=== PATIENT | female | born 1985 | race Caucasian/White ===

== ENCOUNTER 2016-12-22 15:19 | Emergency (ER) | payer BC ==
--- NOTE | ~2016-12-22 | CT114 ---
[facility] A Service of [facility] & [facility] RADIOLOGY TEXT RESULTS PATIENT: CHINEDU ROSSI LOCATION: SED : 81 UNIT #: [id number] AGE: [address]: Rachel Ramirez MD SEX: F ORDER DR: [id number] [address] [address] [id number] E MR#: [id number] #: [id number] NAME: CHINEDU ROSIS : 1985 SEX: F STUDY DATE/TIME: 12/22/2016 17:06 UNIT: SED ROOM: STUDY DESCRIPTION: CT Soft Tissue Neck W Cont Attending Physician: Rachel Ramirez M.D. Referring Physician: Rachel Ramirez M.D. Ordering Physician: Rachel Ramirez M.D. Primary Care Physician: Toy Daniel M.D. MEDICAL IMAGING REPORT This report is preliminary unless electronic signature is present. EXAM Neck CT with contrast. HISTORY Neck swelling toward the right with difficulty talking and swallowing for the past 4 days. Recent upper respiratory infection. TECHNIQUE Axial images were obtained from the skull base to the upper mediastinum with contrast. 75 mL of Isovue was used. Gel-Cap markers were placed at the site of symptoms. This CT exam was performed with one or more of the following radiation dose reduction techniques: automatic exposure control, adjustment of mA and/or kV according to patient size, and iterative reconstruction. FINDINGS The skull base, parapharyngeal spaces and pharyngeal mucosal surfaces have a normal appearance. The parotid and submandibular glands are not enlarged. Normal sized cervical lymph nodes are seen bilaterally. They are slightly larger and more numerous on the right than on the left. They are likely reactive in nature. No pathologically enlarged nodes are seen. Vascular structures of the neck are normal. Soft tissue planes in the larynx are preserved. The right thyroid has been resected. There are multiple left-sided thyroid nodules. The upper mediastinum is unremarkable. IMPRESSION Status post right-sided thyroid resection with remaining nodules in the left thyroid lobe. There is no evidence of acute inflammatory change in the right side of the neck. Normal sized cervical nodes are seen bilaterally. They are slightly larger and more numerous on the right than on the left but still within normal limits and likely reactive in nature. [facility]. [facility] A Service of [facility] RADIOLOGY TEXT RESULTS PATIENT: CHINEDU ROSSI LOCATION: [facility] [place] : [birth year] UNIT #: [id number] AGE: [address]: Rachel Ramirez MD SEX: F ORDER DR: Dictated by... Justin López M.D. THIS IS AN ELECTRONICALLY VERIFIED REPORT Justin López M.D. at 12/23/2016 10:03 AM ANDERSON/ruth TD: 12/23/2016 00:31 JOB #: [id number] MEDICAL IMAGING REPORT Page 1 of 1
[~2016-12-22 15:19] MED LIST: ALLEGRA-D1 TAB.SR1 PO; LEXAPRO PO; MUCINEX DM1 TAB.SR . PO; NUVARING V1 VAG.RING VG; VERAMYST
[2016-12-22] MEDS ORDERED: FLONASE 0.05% N16 G1 INH (15:34)
[2016-12-22] MEDS ORDERED: ZYRTEC10 M2 PO (15:34)
[2016-12-22] MEDS ORDERED: HYDROCHLOROTHIA25 MG PO (15:34)
[2016-12-22] MEDS ORDERED: TOPAMAX PO (15:35)
[2016-12-22] MEDS ORDERED: TYLENOL #3 PO (15:35)
[2016-12-22] MEDS ORDERED: ANORO ELLIPTA1 EACH INH (15:36)
[2016-12-22] MEDS ORDERED: AMOXICILLIN500 M1 PO (15:36)
[2016-12-22] MEDS ORDERED: PROAIR RESPICL90 MCG INH (15:37)
[2016-12-22 16:29] LABS: BASOPHIL# 0.1 X10e3 (0-0.3); BASOPHIL% 0.6 % (0-2.5); EOSINOPHIL# 0.2 X10e3 (0-0.7); EOSINOPHIL% 1.8 % (0.0-7.0); HEMATOCRIT 46.1 % (35.0-45.0); HEMOGLOBIN 15.9 gm/dL (12.0-16.0); LYMPHOCYTE# 3.4 X10e3 (1.0-3.5); LYMPHOCYTE% 31.4 % (17.0-45.0); MEAN CELL VOLUME 85.3 FL (83-96); MEAN CORPUSCULAR HEMOGLOBIN 29.5 PG (28-34); MEAN CORPUSCULAR HGB CONC 34.6 g/dL (30-36); MEAN PLATELET VOLUME 8.3 FL (6.5-11.5); MONOCYTE# 0.8 X10e3 (0-1.0); MONOCYTE% 7.4 % (3.0-12.0); NEUTROPHIL# 6.3 X10e3 (1.5-7.1); NEUTROPHIL% 58.8 % (40-75); PLATELET COUNT 326 X10e3 (140-420); RED BLOOD COUNT 5.41 X10e (3.90-5.30); RED CELL DISTRIBUTION WIDTH 13.2 % (11.0-15.5); WHITE BLOOD COUNT 10.7 X10e3 (4.0-10.5)
[2016-12-22 16:30] LABS: DIFF IND NO
[2016-12-22 16:37] LABS: BUN/CREATININE RATIO 22.85; CALCIUM SERUM 9.8 mg/dL (8.4-10.2); CREATININE SERUM 0.7 mg/dL (0.6-1.4); GLOM FILT RATE Estimated 113.8 mL/min (>60)
[2016-12-22 16:46] LABS: POTASSIUM 2.7 mmol/L (3.5-5.1)
== END 2016-12-22 17:58 | disposition home or self-care (01) ==
LOC: SED 15:19
PROVIDERS: Student in an Organized Health Care Education/Training Program
DX: J04.0 Acute laryngitis (principal); Z79.899 Other long term (current) drug therapy
CPT/HCPCS: 70491; 80048; 84703; 85025; 99284; J1100; J2543; Q9967